=== PATIENT | male | born 1935 | race Caucasian/White ===

== ENCOUNTER 2017-04-10 13:30 | Emergency (ER) | payer MEDICARE, OTHER ==
[~2017-04-10] VITALS: Ht 172.7 cm; Wt 98.0 kg
[2017-04-10 13:44] VITALS: BP 176/81; PULSE 63; RESP 16; TEMP 97.8; O2SAT 96
[2017-04-10] MEDS ORDERED: [UNRECOGNIZED DRUG - OTHER] (15:06)
[2017-04-10] MEDS ORDERED: BPH MED (15:06)
--- NOTE | 2017-04-10 15:10 | PD ---
HPI Chief Complaint: Fall Time Seen by Provider: 15:24 Travel History International Travel<30 days: No Contact w/Intl Traveler<30days: No Traveled to known affect area: No History of Present Illness HPI 82-year-old male here for evaluation of head, neck, left wrist pain status post fall prior to arrival. Patient reports he slipped on tile falling backwards striking his head. He denies loss of consciousness. Patient is not anticoagulated. He denies headache, visual changes, chest pain, shortness of breath, abdominal pain, paresthesia or weakness in the extremities. C-collar was placed in triage. Symptom severity is moderate. No alleviating factors. PFSH Past Medical History Cardiovascular Problems: Yes (HTN) Genitourinary: Yes (bph) Hypertension: Yes Medical other: Yes (mds/low platlets) Immunizations Current: Yes Influenza Vaccination: Yes Social History Alcohol Use: Yes (daily) Tobacco Use: No Allergies-Medications (Allergen,Severity, Reaction): Coded Allergies: No Known Allergies (Unverified , 04/10/17) Reported Meds & Prescriptions Reported Meds & Active Scripts Active Reported [bph med] [blood pressur] Review of Systems Except as stated in HPI: all other systems reviewed are Neg Physical Exam Narrative GENERAL: Alert, well-nourished, well-appearing male in no acute distress. Resting comfortably on stretcher with c-collar in place SKIN: Warm and dry. HEAD: Small hematoma to the occipital region. Normocephalic. EYES: Pupils equal and round. No scleral icterus. No injection or drainage. EOMs intact. ENT: No nasal bleeding or discharge. Mucous membranes pink and moist. NECK: Trachea midline. No JVD. C-collar in place. Generalized posterior neck pain including the midline cervical spine. CARDIOVASCULAR: Regular rate and rhythm. CHEST: No rib or chest wall tenderness RESPIRATORY: No accessory muscle use. Clear to auscultation. Breath sounds equal bilaterally. GASTROINTESTINAL: Abdomen soft, non-tender, nondistended. Hepatic and splenic margins not palpable. MUSCULOSKELETAL: Extremities without clubbing, cyanosis, or edema. No obvious deformities. Left wrist: Notable swelling to the lateral aspect. No deformity. 2+ radial ulnar pulses. Normal sensation in the left hand. Brisk cap refill NEUROLOGICAL: Awake and alert. No obvious cranial nerve deficits. Motor grossly within normal limits. Five out of 5 muscle strength in the arms and legs. Normal speech. PSYCHIATRIC: Appropriate mood and affect; insight and judgment normal. Data Data Last Documented VS Vital Signs Date Time Temp Pulse Resp B/P (MAP) Pulse Ox O2 Delivery O2 Flow Rate FiO2 04/10/17 14:55 Room Air 04/10/17 13:44 97.8 63 16 176/81 (112) [address] Brain W/O Iv Contrast(Rout) (04/10/17 ) Ct Cerv Spine W/O Contrast (04/10/17 ) Wrist, Complete ([id number]) (04/10/17 ) Collar [place] (04/10/17 ) [facility] Medical Decision Making Medical Screen Exam Complete: Yes Emergency Medical Condition: Yes Differential Diagnosis Closed head injury versus skull fracture versus ICH versus cervical spine fracture versus cervical strain versus left wrist fracture Narrative Course 82-year-old male here for evaluation of head, neck, left wrist pain status post fall from standing position. The patient is well-appearing. C-collar was placed in triage. He has a normal neurologic exam. He does have a small hematoma to the occipital region the scalp. Notable swelling to the left lateral aspect of the wrist without deformity. CT of the brain: Negative for acute findings CT scan of cervical spine: Negative for acute findings Left wrist x-ray: Negative for fracture dislocation Agnostic studies discussed with patient and family. He was advised to take over -the-counter Tylenol as needed for pain. Return precautions discussed. Patient verbalizes understanding and agrees to plan Diagnosis Primary Impression: Scalp hematoma Qualified Codes: S00.03XA - Contusion of scalp, initial encounter Additional Impressions: Cervical strain Qualified Codes: S16.1XXA - Strain of muscle, fascia and tendon at neck level , initial encounter Contusion of left wrist Qualified Codes: S60.212A - Contusion of left wrist, initial encounter Referrals: Primary Care Physician Additional Instructions: Take [id number] Tylenol as needed for pain. Use ice and/or heat for muscle spasms and discomfort. Follow-up with her primary doctor. Return to the emergency department if he developed new or worsening symptoms. Disposition: 01 DISCHARGE HOME Condition: Stable Geraldine Robbins Apr 10, 2017 15:10
--- NOTE | 2017-04-10 15:55 | RADRPT ---
EXAM DATE/TIME: 04/10/2017 15:32 [facility] COMPARISON: No previous studies available for comparison. INDICATIONS : Trauma. Fell and hit top of head. Head and neck pain. RADIATION DOSE: 65.80 CTDIvol (mGy) MEDICAL HISTORY : Hypertension. SURGICAL HISTORY : None. ENCOUNTER: Initial ACUITY: 1 day PAIN SCALE: 2/10 LOCATION: cranial TECHNIQUE: Multiple contiguous axial images were obtained of the head. Using automated exposure control and adj ustment of the mA and/or kV according to patient size, radiation dose was kept as low as reasonably a chievable to obtain optimal diagnostic quality images. DICOM format image data is available electro nically for review and comparison. FINDINGS: CEREBRUM: Mild cerebral atrophy is noted. No evidence of midline shift, mass lesion, hemorrhage or acute infarc tion. No extra-axial fluid collections are seen. POSTERIOR FOSSA: The cerebellum and brainstem are intact. The 4th ventricle is midline. The cerebellopontine angle i s unremarkable. EXTRACRANIAL: The visualized portion of the orbits is intact. Small subgaleal hematoma along the left parietal skul l is noted. SKULL: The calvaria is intact. No evidence of skull fracture. CONCLUSION: 1. No acute intracranial abnormality. 2. Small subgaleal hematoma along the left parietal skull. 3. Mild cerebral atrophy. Connor Walter MD on April 10, 2017 at 15:47 Board Certified Radiologist. This report was verified electronically.
--- NOTE | 2017-04-10 16:00 | RADRPT ---
EXAM DATE/TIME: 04/10/2017 15:45 [facility] COMPARISON: No previous studies available for comparison. INDICATIONS : Left wrist pain post fall today MEDICAL HISTORY : None. SURGICAL HISTORY : None. ENCOUNTER: Initial ACUITY: 1 day PAIN SCORE: 10 LOCATION: Left medial wrist FINDINGS: Degenerative changes radiocarpal joint. Anatomic alignment without fracture. CONCLUSION: Negative for fracture or dislocation. Follow up in 7-10 days is suggested if symptoms persist. Rhys Vazquez MD FACR on April 10, 2017 at 15:57 Board Certified Radiologist. This report was verified electronically.
--- NOTE | 2017-04-10 16:13 | RADRPT ---
EXAM DATE/TIME: 04/10/2017 15:32 [facility] COMPARISON: No previous studies available for comparison. INDICATIONS : Trauma. Fell and hit top of head. Head and neck pain. RADIATION DOSE: 26.47 CTDIvol (mGy) MEDICAL HISTORY : Hypertension. SURGICAL HISTORY : None. ENCOUNTER: Initial ACUITY: 1 day PAIN SCALE: 5/10 LOCATION: Neck TECHNIQUE: Volumetric scanning of the cervical spine was performed. Multiplanar reconstructions in the sagittal, coronal and oblique axial planes were performed. Using automated exposure control and adjustment o f the mA and/or kV according to patient size, radiation dose was kept as low as reasonably achievable to obtain optimal diagnostic quality images. DICOM format image data is available electronically f or review and comparison. FINDINGS: There is no acute fracture or prevertebral soft tissue swelling. Diffuse cervical spondylosis is not ed. Moderate to severe bilateral foraminal narrowing is noted at C5-6 and moderate to severe right n eural foraminal narrowing is noted at C6-7. Mild to moderate bilateral foraminal narrowing is noted at C4-5. Disc osteophyte complex is noted at C6-7 and to a lesser extent at C5-6, C4-5 and C3-4. No spinal stenosis is noted. CONCLUSION: 1. No acute fracture or prevertebral soft tissue swelling. 2. Moderate to severe bilateral foraminal narrowing at C5-6, moderate right neural foraminal narrowin g at C6-7 and mild to moderate bilateral foraminal narrowing at C4-5. 3. Diffuse cervical spondylosis. Connor Walter MD on April 10, 2017 at 15:56 Board Certified Radiologist. This report was verified electronically.
== END 2017-04-10 17:04 | disposition home or self-care (01) ==
LOC: PHEFT 13:30
DX: S00.03XA Contusion of scalp, initial encounter (principal); S16.1XXA Strain of muscle, fascia and tendon at neck level, initial encounter; S60.212A Contusion of left wrist, initial encounter; I10 Essential (primary) hypertension; W01.0XXA Fall on same level from slipping, tripping and stumbling without subsequent striking against object, initial encounter
CPT/HCPCS: 70450; 72125; 73110; 99285; L0150